=== PATIENT | male | born 1950 | race Caucasian/White ===

== ENCOUNTER 2017-09-07 10:33 | Day surgery (SDC) | payer OTHER, BC ==
[2017-09-04 12:30] LABS: Absolute Lymphocytes (CBC) 1.1 K/uL (0.7-4.9); Absolute Monocytes 0.6 K/uL (0.1-1.3); Absolute Neutrophil 6.5 K/uL (1.8-8.0); Basophils % 0.6 % (0-1.3); Hematocrit 43.9 % (39.6-49.0); Lymphocytes % 12.8 % (15.3-44.8); MCH 28.3 pg (27.0-35.0); MCV 85.3 fL (80-100); MPV 9.9 fL (7.6-11.3); Monocytes % 6.7 % (3.3-12.3); RBC Red Blood Cell Count 5.15 M/uL (4.33-5.43)
--- NOTE | 2017-09-04 14:41 | EKG ---
Test Date: 2017-09-04 Test Time: 11:49:33 Electric Motor Repairman: FABIO MEASUREMENT RESULTS: Intervals: Rate: 68 TX: 174 QRSD: 90 QT: 376 QTc: 399 [place]: P: 16 TX: 174 QRS: 69 T: 50 INTERPRETIVE STATEMENTS: Sinus rhythm with occasional premature ventricular complexes Low voltage QRS Borderline ECG No previous ECG available for comparison Electronically Signed On 09-04-17 14:39:55 CDT by Yunior Martino
[2017-09-07] MEDS ORDERED: NA CHLORIDE 0.9% 1,000 ML ONE (10:39)
[2017-09-07] MEDS ORDERED: MIDAZOLAM HCL 2 MG/2 ML INJ ONE (10:51)
[2017-09-07] MEDS ORDERED: PROPOFOL 200 MG/20 ML VIAL IV ONE (10:51)
[2017-09-07] MEDS ORDERED: LIDOCAINE 2% MPF 5 ML VIAL ONE (10:52)
[2017-09-07] MEDS ORDERED: FENTANYL CITR 100 MCG/2 ML ONE (10:52)
[2017-09-07] MEDS ORDERED: GLYCOPYRROLATE 0.2 MG/ML SYR ONE (10:54)
[2017-09-07] MEDS ORDERED: ROCURONIUM 50 MG/5 ML VIAL IV ONE (10:54)
[2017-09-07] MEDS ORDERED: NEOSTIGMINE 1 MG/ML -5 ML SYRINGE ONE (10:55)
[2017-09-07] MEDS ORDERED: LIDOCAINE 1% W/EPI 1:100,000 MDV 50 ML VIAL ONE (10:57)
--- NOTE | 2017-09-07 12:24 | P.BOP ---
Preoperative diagnosis: HP mass Postoperative diagnosis: same Primary procedure: DL/cervical esophagoscopy, biopsy Software Requirements Engineer: NONE,NONE Estimated blood loss: <5ml Specimen: posterior HP wall, cervical esophagus Anesthesia: General Implants: none Fluids & blood products: crystalloid 700ml Transferred to: Recovery Room Condition: Good
[2017-09-07] MEDS ORDERED: HYDROCODONE/APAP 10/325 TAB ONE (13:14)
--- NOTE | 2017-09-08 00:41 | OP ---
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 Procedure: Direct laryngoscopy, cervical esophagoscopy, and biopsy of hypopharyngeal mass. Indication For Procedure: Ba Onofre presents with chronic sore throat, and on in office flexible laryngoscopy was noted to have a fullness or mass appearing at the esophageal introitus. The risks, benefits, and alternatives were discussed with the patient who agreed to proceed. The patient was b rought to the operating room. He was placed under general anesthesia via oral endotracheal tube. He was somewhat of a difficult intubation. The Jai laryngoscope was used to perform a direct josse ngoscopy. The laryngoscope was placed in suspension with an assistant manager to allow for suspension from [facility] stand. A 15-degree rigid telescope was used to allow magnification and record the appearance of the mass. The mass was located on the posterior pharyngeal wall, and is estimated to the about 1 to 1-1/2 cm. The lesion was not ulcerated or friable. A large cup forceps was used to take a biopsy of this area. The lower extent of the area of the lesion was difficult to see. Therefore, a rigid cervical esophagus scope was used to perform a rigid esophagoscopy. The tip was placed through the m outh, and into the esophageal introitus. There was a firm polypoid like mass that seemed to extend f rom the mass on the posterior pharyngeal wall. It again was approximately 1.5 cm. There was no ulce ration or friability noted. The scope was advanced past the mass, and the remaining mucosa more exte nsively was normal. Full advancement of the scope was limited by the patient's body habitus. The sc ope was then partially withdrawn, and the cervical esophageal mass was again visualized. This was no jacky at about 15 cm from the teeth. The large cup forceps were used to perform a biopsy of this porti on of the mass. This was sent as cervical esophagus. A Ray-Trino was then packed into the hypopharynx and upper esophagus to aid in hemostasis. After several minutes, the Ray-Trino was removed, and the a negrita was inspected and appeared to be hemostatic. The scope was then completely withdrawn and the pat ient was returned to care of anesthesia for awakening extubation in the operating room, which proceed ed without difficulty. Complications: None. Disposition: The patient can be discharged home later today in the care of his family, and will foll ow up with Dr. Alfaro in approximately 10 days to review the biopsy results. TERA/JUSTA Voice ID: [id number] Report ID: [id number]
== END 2017-09-07 13:40 | disposition home or self-care (01) ==
LOC: OR 10:33
PROVIDERS: ATTEND Otolaryngology
PROC: 0DB18ZX Excision of Upper Esophagus, Via Natural or Artificial Opening Endoscopic, Diagnostic (ICD-10-PCS; 2017-09-07)
PROC: 0CBM8ZX Excision of Pharynx, Via Natural or Artificial Opening Endoscopic, Diagnostic (ICD-10-PCS; principal; 2017-09-07 12:00)
DX: R22.1 Localized swelling, mass and lump, neck (principal); J02.9 Acute pharyngitis, unspecified; E11.9 Type 2 diabetes mellitus without complications; I10 Essential (primary) hypertension; J44.9 Chronic obstructive pulmonary disease, unspecified; K21.9 Gastro-esophageal reflux disease without esophagitis; E66.9 Obesity, unspecified; F17.200 Nicotine dependence, unspecified, uncomplicated; Z88.0 Allergy status to penicillin; Z82.5 Family history of asthma and other chronic lower respiratory diseases; Z80.9 Family history of malignant neoplasm, unspecified; Z82.49 Family history of ischemic heart disease and other diseases of the circulatory system; Z83.2 Family history of diseases of the blood and blood-forming organs and certain disorders involving the immune mechanism
CPT/HCPCS: 31536; 36415; 43193; 82962 ×2; 85025; 88162; 88305; 93005; J2250; J2710; J3010; J7030